=== PATIENT | female | born 1940 | race Caucasian/White ===

== ENCOUNTER → 2016-12-11 | Outpatient (CLI) | payer MEDICARE, BC | END | disposition home or self-care (01) | LOC: RAD.S 08:58 | DX: R10.9 Unspecified abdominal pain (principal) ==

== ENCOUNTER 2017-02-02 08:12 | Emergency (ER) | payer MEDICARE, BC ==
--- NOTE | 2017-02-14 08:25 | ER ---
ADMIT: 02/02/2017 RM/LOC: ER [facility] MR#: [id number] [address] [address] ELI KLEIN [address] [place] [address] Emergency Room Report SEX: F AGE: 76 : 1940 DATE: 02/02/2017 ADDENDUM: A 76-year-old white female coming in with some reflux complaints, also constipation, as well as a kind of burning all over. I do not see any rash at this time. Says her feet kind of itches all over. I do not see anything skin connolly, however, empirically we are going to give her Benadryl 50 IM and Decadron 20 IM. Also she got a GI cocktail, seemed to help a little bit. Also she is complaining of constipation, which I wanted to use milk of magnesia as directed. Also spoke with her doctor, Dr. Carbajal, they will call her and make an appointment for followup this week. CONDITION ON DISCHARGE: Fair. Anatoliy Segura MD/ genoveva JOB #: [id number] CC: Anatoliy Segura MD, Attending Physician Gregorio Eli, Family Physician
== END 2017-02-02 10:30 | disposition home or self-care (01) ==
LOC: ER 08:12
DX: K21.9 Gastro-esophageal reflux disease without esophagitis (principal); K59.00 Constipation, unspecified; I10 Essential (primary) hypertension; E03.9 Hypothyroidism, unspecified; Z86.73 Personal history of transient ischemic attack (TIA), and cerebral infarction without residual deficits; Z88.8 Allergy status to other drugs, medicaments and biological substances; Z79.899 Other long term (current) drug therapy

== ENCOUNTER 2017-06-02 04:34 | Emergency (ER) | payer MEDICARE, BC ==
--- NOTE | 2017-06-04 08:46 | ER ---
ADMIT: 06/02/2017 RM/LOC: ER [facility] MR#: [id number] [address] ELI KLEIN [address] [place] [address] Emergency Room Report SEX: F AGE: 76 : 1940 DATE: 06/02/2017 HISTORY OF PRESENT ILLNESS: The patient is a 76-year-old female with past medical history of anxiety and hypertension, came to the ER with chief complaint of bilateral hand and face tingling and burning. The patient states she took Levaquin for 1st time today and believes that she has an allergic reaction. The patient denies any shortness of breath or difficulty breathing. PHYSICAL EXAMINATION: VITAL SIGNS: The patient has stable vitals. GENERAL: In mild distress and anxious. HEENT/NECK: There are no rashes. In the oropharynx, I did not see any swelling. The patient has no stridor. Trachea is midline. LUNGS: Clear bilaterally. HEART: Normal heart sounds. ABDOMEN: Soft. NEUROLOGICAL: Grossly normal. The rest of the physical examination is negative. The patient was observed for questionable allergic reaction, was given dose of Benadryl. The patient did not develop any new symptoms. The patient is stable to be discharged to home with return precautions and follow up with the primary doctor today. Sang Adams MD/ genoveva JOB #: [id number] CC: Sang Adams MD, Attending Physician Claudine Carbajal MD, Family Physician
== END 2017-06-02 06:15 | disposition home or self-care (01) ==
LOC: ER 04:34
DX: R20.0 Anesthesia of skin (principal); F41.9 Anxiety disorder, unspecified; I10 Essential (primary) hypertension; E07.9 Disorder of thyroid, unspecified; Z88.5 Allergy status to narcotic agent